=== PATIENT | female | born 1990 | race Caucasian/White ===

== ENCOUNTER 2018-01-24 13:17 | Emergency (ER) | payer SELFPAY ==
--- NOTE | 2018-01-24 15:27 | OBHP ---
Datetime: 01/24/2018 14:25 IP Adm Impression: , intrauterine IP Admit Plan: Observation/Evaluation Admit Comment, IP Provider: 27 y/o , 36.3 weeks confirmed by 8th week US, Dx with IUGR presen ts to [facility] for lower abdominal pressure. Patient used to lives in [place] where she was getting prenata care but she moved to [place] and would like further care establish here. Lower abdominal pain is sharp, intermittent, left sided, LLQ area started this morning which worsens with walking. Reports on and off dizziness. ROS: Endorses good movement, Denies LOF, vaginal bleeding, nausea, vomiting, fever, chills, diarrhea or headache. care: IUGR Dx on US, Patient used to F/U for US twice weekly, NST twice weekly and weekly checkup with Ob. H/O D/E at 8 weeks at age 18 PGynHx: GC/Chl at age 19 treated with Abx, Paps WNL PMHx: migraine, Depression PSHx: Appendectomy in 2011 F/H: Mother- DM, HTN, Depression, Heart disease Father- Heart disease [place]: NKDA Medications: PNV Social Hx: No smoking, alcohol, drugs since pregnnacy PE General: NAD, Well Chest: RRR, S1S2 present, No murmurs Lungs: CTA B/L, No wheeze, rales, rhonchi Extremity: No pedal edema, Calf tenderness abdomen: Gravid, NT, +FHR A/P: 27 y/o , 36.3 weeks confirmed by 8th week US, Dx with IUGR presents to [facility] for lower abdominal pressure. - EFM and TOCO Moniotring - NST Reactive - Not in active labor - Labor pracautions provided The patient was seen with resident I agree with the notes patient was advised to obtain r ecords sonograms and follow-up in the [place] for family health in 1 week. labor precautions p rovided, movement counts advised. Patient was given the opportunity ask questions all questions answered patient agreed to plan of care. heart rate reactive accelerations no decelerations an d tocometer occasional uterine contraction Pelvic Type - PN: Adequate Extremities - PN: Normal Abdomen - PN: Normal Back - PN: Not Done Breast - PN: Not Done Lungs - PN: Normal Heart - PN: Normal Thyroid - PN: Normal Neurologic - PN: Normal HEENT - PN: Normal General - PN: Normal FHR - Baseline A Provider: 140 Membranes, Provider: Intact Comments, ACOG Physical Exam: General: NAD, Well Chest: RRR, S1S2 present, No murmurs Lungs: CTA B/L, No wheeze, rales, rhonchi Extremity: No pedal edema, Calf tenderness abdomen: Gravid, NT, +FHR PVE: Gestation - Est Wks by US: 36.3 Pool Provider: Negative EGA AdmitDate IP: 36.3 Vital Signs Provider: Reviewed; Within Normal Limits IP Chief Complaint: Maternal discomfort NICHD Variability Prov Fetus A: Moderate 6-25bpm NICHD Accel Fetus A IP Provider: [id number] NICHD Decel Fetus A IP Provider: None Dilatation, Provider: 0 Effacement, Provider: 0 Station, Provider: -2 Genitourinary Exam: Normal DTRs - PN: Normal
[2018-01-24 19:37] VITALS: BP 115/69; PULSE 83; O2SAT 100
== END 2018-01-24 15:15 | disposition home or self-care (01) ==
LOC: H.EROB2 13:17
DX: O26.93 Pregnancy related conditions, unspecified, third trimester (principal); R10.2 Pelvic and perineal pain; R42 Dizziness and giddiness; Z3A.36 36 weeks gestation of pregnancy

== ENCOUNTER 2018-02-06 12:43 | Emergency (ER) | payer MEDICAID ==
[2018-02-06 13:37] VITALS: BMI 22.0
[2018-02-06] MEDS ORDERED: Sodium Chloride 0.9% 1,000 ML IV STA (13:55)
--- NOTE | 2018-02-06 13:59 | ED PDOC ---
HPI: Female Pain Chief Complaint (Provider): Vaginal bleeding/weakness History Per: Patient History/Exam Limitations: no limitations Onset/Duration Of Symptoms: Days (1 week), Intermittent Episodes Current Symptoms Are (Timing): Still Present Severity: Mild Quality Of Discomfort: Aching, Cramping Associated Symptoms: Nausea, Loss Of Appetite. denies: Fever, Chest Pain, Urinary Symptoms Alleviating Factors: OTC Meds (ibuprophen) Additional History Per: Patient Additional Complaint(s): 27-year-old 1 week s/p vaginal delivery presents to the ED with complaints of vaginal bleeding, abdominal pain and weakness.Patient was induced at 37 weeks due to IUGR, delivery was uncomplicated and patient and baby were discharged in 2 days.Patient reports bleeding has been slowly decreasing in quantity since discharge but cramping and abdominal pain has remained unchanged. She currently bleeds through about 2-3 sanitary pads per day with a few clots present on each pad. Pain is moderate, diffuse lower quadrant and suprapubic, is cramping/dull/achey in nature, ocasionally radiates to the back and is relieved with ibuprofen. She reports a one day history of generalized weakness, headache, dizziness, heavy perspiration, shortness of breath on exertion and palpitations. She is concenred with blood loss due to a complication with her previous appendectomy which resulted in excessive blood loss. She has no history or family history of anemia or clotting disorders. She denies LOC, syncope, vomiting, change in vision, chest pain, frequency, urgency , constipation and diarrhea. PCP: Susannah Bravo MD ([facility]) PMH: Migraines Meds: None - daily multivitamin & iron, ibuprofen PRN PSH: Appendectomy 2011 OBGYN Hx: ; Vaginal 01/30/18 no complications, LMP 2016 (regular, 28 days , 4 day moderate bleeding), Nexplanon (2016, removed prior to , implanted after delivery) Social: denies EtOH, tobacco, drugs FHx: Mother: DM, HTN, Joint issue; Father: DM, HTN ED course: CBC: Hg 11.8, WNL CMP: BUN/Cr 12/0.6, WNL Troponin I: <0.0120 bHC.13 EKG: TV U/S: Abnormal Vaginal Bleeding: Yes : 2 Para: 1 (1011) Miscarriage: 0 <Vinita Moore - Last Filed: 02/06/18 15:40> <Syd Soto - Last Filed: 02/06/18 16:48> Time Seen by Provider: 02/06/18 13:37 Supervising Attending Note - Supervising Attending Note The Documented history was done by the: Physician Lithograph Press Operator Tin[employer] The documented physical exam was done by the: Physician Lithograph Press Operator Tin[employer] The documented procedures were done by the: Physician Lithograph Press Operator [employer] - Attestation: I have personally seen and examined this patient.: Yes I have fully participated in the care of the patient.: Yes I have reviewed all pertinent clinical information, including history, physical exam and plan: Yes - Notes: Notes:: Vaginal bleeding; here as she thinks she lost too much blood. Delivered baby 1 week ago. Vaginal bleeding improving. <Syd Soto - Last Filed: 02/06/18 16:48> Past Medical History - Medical History PMH: No Chronic Diseases - Surgical History Surgical History: Appendectomy (2011) - Family History Family History: States: Diabetes (mother + father), Hypertension (mother + father), Other Other Family History: Mother - "joint disease" - Social History Current smoker - smoking cessation education provided: No Ex-Smoker (has not smoked in the last 12 months): No Alcohol: None Drugs: Denies <Vinita Moore - Last Filed: 02/06/18 15:40> Reviewed: Nursing Documentation, Vital Signs Vital Signs: Last Vital Signs Temp 98.3 F 02/06/18 14:25 Pulse 58 L 02/06/18 14:25 Resp 16 02/06/18 14:25 BP 112/72 02/06/18 14:25 Pulse Ox 100 02/06/18 14:25 - Medical History PMH: Migraine - Surgical History Surgical History: Appendectomy <Syd Soto - Last Filed: 02/06/18 16:48> - Home Medications Home Medications: Ambulatory Orders Medication Instructions Recorded Nitrofurantoin Macrocrystals 100 mg PO BID #10 cap 02/06/18 [Macrobid] - Allergies Allergies/Adverse Reactions: Allergies Allergy/AdvReac Type Severity Reaction Status Date / Time No Known Allergies Allergy Verified 02/06/18 14:53 Review of Systems ROS Statement: Except As Marked, All Systems Reviewed And Found Negative <Vinita Moore - Last Filed: 02/06/18 15:40> Respiratory: Positive for: Shortness of Breath Genitourinary Female: Positive for: Vaginal Bleeding, Pelvic Pain Neurological: Positive for: Weakness <SotoMiah yusufya Po - Last Filed: 02/06/18 16:48> Physical Exam - Physical Exam Appears: Positive for: Well, No Acute Distress Skin: Positive for: Normal Color, Warm. Negative for: Diaphoresis, Rash Eye Exam: Positive for: Other (conjunctival pallor) Neck: Positive for: Normal Cardiovascular/Chest: Positive for: Regular Rate, Rhythm, Chest Non Tender Respiratory: Positive for: Normal Breath Sounds. Negative for: Wheezing, Respiratory Distress Gastrointestinal/Abdominal: Positive for: Bowel Sounds, Soft, Tenderness ( suprapubic, LRQ). Negative for: Distended, Guarding, Rebound Extremity: Negative for: Pedal Edema Neurologic/Psych: Positive for: Alert, Oriented <Vinita Moore - Last Filed: 02/06/18 15:40> - Physical Exam Appears: Positive for: Non-toxic Neck: Positive for: Normal, Painless ROM, Supple Cardiovascular/Chest: Positive for: Regular Rate, Rhythm, Chest Non Tender. Negative for: Edema Respiratory: Positive for: Normal Breath Sounds Gastrointestinal/Abdominal: Positive for: Soft, Tenderness Back: Positive for: Normal Inspection. Negative for: L CVA Tenderness, R CVA Tenderness Neurologic/Psych: Positive for: Alert, environmental geologist II-XII, Oriented. Negative for: Motor/Sensory Deficits, Aphasia, Facial Droop <SotoSyd Fontenot - Last Filed: 02/06/18 16:48> - Laboratory Results Result Diagrams: 02/06/18 14:35 02/06/18 14:35 <Vinita Moore - Last Filed: 02/06/18 15:40> - Laboratory Results Result Diagrams: 02/06/18 14:35 02/06/18 14:35 Interpretation Of Abn Labs: no acute Urine dip results: Positive for: Leukocyte Esterase - ECG ECG: Positive for: Interpreted By Me, Viewed By Me ECG Rhythm: Positive for: Normal QRS, Normal ST Segment, Sinus Rhythm - CT Scan/US US Other Rad Studies (CT/US): Read By Radiologist Other Rad Interpretation: no acute - Progress ED Course And Treament: 1615: Stable. AAOx3. Pain free. Bhcg borderline elevated likely from recent . Fu with pcp. Fu with obgyn for further eval and repeat bhcg for normalization of levels. <Syd Soto - Last Filed: 02/06/18 16:48> Disposition <Vinita Moore - Last Filed: 02/06/18 15:40> - Patient ED Disposition Is Patient to be Admitted: No Counseled Patient/Family Regarding: Studies Performed, Diagnosis, Need For Followup - Disposition Disposition: Routine/Home Disposition Time: 16:20 <Syd Soto - Last Filed: 02/06/18 16:48> - Clinical Impression Clinical Impression: Weakness, Urinary tract infection - Disposition Referrals: [facility] [Outside] - 02/07/18 [facility] [Outside] - 02/07/18 Condition: STABLE Additional Instructions: Return if not better in 3 days. See the obgyn in 3 days for repeat blood work to make sure your levels go to normal. Prescriptions: Nitrofurantoin Macrocrystals [Macrobid] 100 mg PO BID #10 cap Instructions: Weakness (ED), Urinary Tract Infections in Adults Forms: [facility] ED School/Work Excuse
[2018-02-06 15:08] LABS: BASO # 0.1 K/uL (0.0-0.2); BASO % 0.6 % (0.0-2.0); EOS # 0.2 K/uL (0.0-0.7); EOS % 2.2 % (0.0-4.0); HEMOGLOBIN 11.8 g/dL (12.0-16.0); LYMPH # 1.7 K/uL (1.0-4.3); LYMPH % 18.3 % (20.0-40.0); MEAN CELL VOLUME 84.6 fl (81.0-99.0); MEAN CORPUSCULAR HEMOGLOBIN 27.9 pg (27.0-31.0); MEAN PLATELET VOLUME 8.2 fl (7.2-11.7); MONO # 0.6 K/uL (0.0-0.8); MONO % 5.9 % (0.0-10.0); NEUT # 6.9 K/uL (1.8-7.0); RBC 4.22 Mil/uL (3.80-5.20); RED CELL DISTRIBUTION WIDTH 14.2 % (11.5-14.5); WHITE BLOOD COUNT 9.5 K/uL (4.8-10.8)
[2018-02-06 15:22] LABS: ALB/GLOB RATIO 1.1 (1.0-2.1); ALBUMIN 3.9 g/dL (3.5-5.0); ALT/SGPT 32 U/L (9-52); AST/SGOT 29 U/L (14-36); BLOOD UREA NITROGEN 12 mg/dl (7-17); GFR NON-AFRICAN AMERICAN > 60
[2018-02-06 15:58] VITALS: TEMP 98.3; O2SAT 100
--- NOTE | 2018-02-06 16:04 | US ---
Date of service: 02/06/2018 HISTORY: Vaginal bleeding COMPARISON: None available. TECHNIQUE: Transvaginal pelvic ultrasound was performed. FINDINGS: UTERUS: Measures 11.2 x 6.8 x 6.9 cm. Anteverted, bulky and normal in appearance in size and appearance. No fibroid or other mass lesion seen. ENDOMETRIUM: Measures 2.2 mm in diameter. Mildly thickened in keeping with status. CERVIX: Minimal fluid in the endocervical canal. RIGHT OVARY: Measures 3.4 x 1.2 x 3.2 cm. No solid mass. Normal flow. LEFT OVARY: Measures 3.9 x 3.0 x 4.6 cm. No solid mass. Normal flow. FREE FLUID: No significant free fluid noted. OTHER FINDINGS: None. IMPRESSION: Bulky uterus. Central endometrial complex is mildly prominent, likely related to status. Minimal fluid in the endocervical canal.
[2018-02-06 17:32] VITALS: BP 118/68; PULSE 72; RESP 18
--- NOTE | 2018-02-07 07:45 | CARD ---
APPROVED REPORT Date of service: 02/06/2018 EKG Measurement Heart [id number] [id number] <Conclusion> Sinus bradycardia Otherwise normal ECG
== END 2018-02-06 16:58 | disposition home or self-care (01) ==
LOC: H.ER 12:43
DX: N39.0 Urinary tract infection, site not specified (principal); R53.1 Weakness
CPT/HCPCS: 76830; 80053; 83735; 84100; 84484; 84702; 85025; 93005; 96360; 99283; J7030